=== PATIENT | female | born 1950 | race Caucasian/White ===

== ENCOUNTER 2016-09-21 21:16 | Emergency (ER) | payer MEDICARE, OTHER ==
[~2016-09-21] VITALS: Ht 175.3 cm; Wt 81.6 kg
[2016-09-21] MEDS ORDERED: LOVASTATIN 20 MG TABLET (21:39)
[2016-09-21] MEDS ORDERED: LISINOPRIL 40 MG TABLET (21:39)
[2016-09-21] MEDS ORDERED: LEVOTHYROXINE 150 MCG TABLET (21:39)
[2016-09-21] MEDS ORDERED: CYANOCOBALAMIN 1000 MCG/ML (21:39)
[2016-09-21] MEDS ORDERED: VIT D2 1.25 MG (50,000 UNIT) (21:39)
[2016-09-21] MEDS ORDERED: RABIES VACCINE (PCEC)/PF 2.5 UNIT ML IM ONE ×2 (21:45→21:53)
[2016-09-21] MEDS ORDERED: RABIES IMMUNE GLOBULIN/PF 150 UNIT/ML VIAL IM ONE (21:45)
[2016-09-21] MEDS ORDERED: ACETAMINOPHEN/CODEINE 300-30 MG TABLET PO ONE (21:45)
[2016-09-21] MEDS ORDERED: ACETAMINOPHEN/CODEINE 300-30 MG TABLET ONE (21:53)
--- NOTE | 2016-09-21 22:21 | NUR ---
Patient discharged to home in stable conditon. Written and verbal after care instructions given. Patient verbalizes understanding of instructions.
[2016-09-21 22:23] VITALS: BP 148/78
== END 2016-09-21 22:23 | disposition home or self-care (01) ==
LOC: ER 21:18
DX: S80.811A Abrasion, right lower leg, initial encounter (principal); S81.831A Puncture wound without foreign body, right lower leg, initial encounter; W54.0XXA Bitten by dog, initial encounter; Y93.89 Activity, other specified; Y99.8 Other external cause status; Y92.89 Other specified places as the place of occurrence of the external cause
CPT/HCPCS: 90376; A4663

== ENCOUNTER 2016-09-28 10:16 | Emergency (ER) | payer MEDICARE, OTHER ==
[~2016-09-28] VITALS: Ht 162.6 cm; Wt 72.6 kg
[~2016-09-28 10:16] MED LIST: CYANOCOBALAMIN 1000 MCG/ML; LEVOTHYROXINE 150 MCG TABLET; LISINOPRIL 40 MG TABLET; LOVASTATIN 20 MG TABLET; VIT D2 1.25 MG (50,000 UNIT)
--- NOTE | 2016-09-28 11:04 | NUR ---
dr bauman at the bedside for eval and exam.
--- NOTE | 2016-09-28 11:08 | NUR ---
Patient discharged to home in stable conditon. Written and verbal after care instructions given. Patient verbalizes understanding of instructions.
[2016-09-28 11:09] VITALS: BP 114/75
--- NOTE | 2016-09-29 09:22 | NUR ---
left message for patient, needs rabies vaccine
== END 2016-09-28 11:10 | disposition home or self-care (01) ==
LOC: ER 10:16
DX: Z48.00 Encounter for change or removal of nonsurgical wound dressing (principal); I10 Essential (primary) hypertension
CPT/HCPCS: A4663

== ENCOUNTER 2016-09-29 13:21 | Emergency (ER) | payer MEDICARE, OTHER ==
[~2016-09-29] VITALS: Ht 162.6 cm; Wt 72.6 kg
[2016-09-29] MEDS ORDERED: RABIES VACCINE (PCEC)/PF 2.5 UNIT ML IM ONE ×2 (13:45→14:00)
--- NOTE | 2016-09-29 14:10 | NUR ---
Patient discharged to home in stable conditon. Written and verbal after care instructions given. Patient verbalizes understanding of instructions.pt walks in steady gait
== END 2016-09-29 14:12 | disposition home or self-care (01) ==
LOC: ER 13:21
DX: Z23 Encounter for immunization (principal); I10 Essential (primary) hypertension
CPT/HCPCS: A4663

== ENCOUNTER 2016-10-09 10:30 | Emergency (ER) | payer MEDICARE, OTHER ==
[~2016-10-09] VITALS: Ht 170.2 cm; Wt 83.9 kg
[2016-10-09] MEDS: RABIES VACCINE (PCEC)/PF 2.5 UNIT ML IM ONE (11:02)
[2016-10-09] MEDS ORDERED: RABIES VACCINE (PCEC)/PF 2.5 UNIT ML IM ONE (11:09)
--- NOTE | 2016-10-09 11:33 | NUR ---
PT WAS EVALUATED BY DR HICKS. PT WAS MEDICATED ACCORDING TO ER MD ORDERS. PT TOLERATED TO VACCINATION WITHOUT COMPLICATIONS. D/C INSTRUCTIONS GIVEN TO THE PT. PT WAS D/C TO HOME BY DR HICKS.
[2016-10-09 11:35] VITALS: BP 129/81
== END 2016-10-09 11:52 | disposition home or self-care (01) ==
LOC: ER 10:30
DX: Z23 Encounter for immunization (principal); I10 Essential (primary) hypertension
CPT/HCPCS: A4663

== ENCOUNTER 2016-12-14 09:29 | Emergency (ER) | payer MEDICARE, OTHER, MEDICAID ==
[~2016-12-14] VITALS: Ht 172.7 cm; Wt 72.6 kg
[2016-12-14] MEDS ORDERED: CEFTRIAXONE 1 G in IV DEXTROSE 5% 50 ML IV ONE (10:15)
[2016-12-14] MEDS ORDERED: ONDANSETRON 4 MG/2 ML VIAL IV ONE (10:15)
[2016-12-14] MEDS ORDERED: MORPHINE SULFATE 2 MG/1 ML DISP.SYRIN IV ONE (10:15)
[2016-12-14] MEDS ORDERED: CLINDAMYCIN PHOSPHATE IV 900 MG in IV DEXTROSE 5% 100 ML IV ONE (10:15)
[2016-12-14] MEDS ORDERED: ONDANSETRON 4 MG/2 ML VIAL ONE (10:34)
[2016-12-14] MEDS ORDERED: MORPHINE SULFATE 2 MG/1 ML DISP.SYRIN ONE (10:34)
--- NOTE | 2016-12-14 10:36 | NUR ---
SALINE LINE PLACED, MORPHINE AND ZOFRAN ADMINISTERED, CLEOCIN IVPB INFUSING. PT POSITIONED FOR COMFORT.
[2016-12-14] MEDS ORDERED: CLINDAMYCIN PHOSPHATE 900 MG/6 ML VIAL ONE (10:39)
[2016-12-14] MEDS ORDERED: CEFTRIAXONE 1 G VIAL ONE (10:39)
[2016-12-14] MEDS ORDERED: HYDROMORPHONE 1 MG/1 ML DISP.SYRIN IV ONE (11:30)
[2016-12-14] MEDS ORDERED: HYDROMORPHONE 2 MG/1 ML DISP.SYRIN ONE (11:38)
--- NOTE | 2016-12-14 11:41 | NUR ---
ALL MEDS ADMINISTERED, PT FEELS DIZZY FROM DILUADID IV. PT AWAITING FOR MEDICATION TO WEAR OUT.
--- NOTE | 2016-12-14 12:04 | NUR ---
PT FELT GOOD, NOT DIZZY, PT HAD IV D/C'D INTACT, ACI/RX'S GIVEN. PT TREANSPORTED TO PT'S SIG OTHER VEHICLE WHOM SIG OTHER TO DRIVE.
[2016-12-14 12:06] VITALS: BP 110/68
== END 2016-12-14 12:07 | disposition home or self-care (01) ==
LOC: ER 09:29
DX: L03.211 Cellulitis of face (principal); L02.01 Cutaneous abscess of face; I10 Essential (primary) hypertension; E03.9 Hypothyroidism, unspecified; Z79.899 Other long term (current) drug therapy
CPT/HCPCS: 96365; 96367; 96375; 99284; A4663; J0696; J1170; J2270; J2405; J3490; J7060 ×2